=== PATIENT | female | born 1965 | race African-American/Black ===

== ENCOUNTER → 2017-10-31 | Outpatient (CLI) | payer MEDICARE, OTHER ==
--- NOTE | 2017-10-31 15:29 | XR ---
EXAMINATION TYPE: XR foot limited LT DATE OF EXAM: 10/31/2017 CLINICAL HISTORY: Left foot pain after injury. TECHNIQUE: Frontal and lateral images of the left foot are obtained. COMPARISON: None FINDINGS: There is no acute fracture/dislocation evident in the left foot. The joint spaces in the left foot appear within normal limits. There is mild soft tissue swelling of the dorsum of the midfoo t and hindfoot. No radiopaque foreign body. Mild degenerative changes of the distal interphalangeal j oints and first metatarsal phalangeal joint are demonstrated as small marginal osteophytes and joint space narrowing. IMPRESSION: Mild soft tissue swelling over the dorsum of the midfoot and hindfoot with no acute fract ure or dislocation in the left foot.
== END | disposition home or self-care (01) ==
LOC: RADXRMAIN 14:39
PROVIDERS: ATTEND Internal Medicine
DX: M79.89 Other specified soft tissue disorders (principal)